=== PATIENT | female | born 1950 | race Caucasian/White ===

== ENCOUNTER 2020-09-20 15:58 | Emergency (ER) | payer OTHER, MEDICAID ==
[~2020-09-20] VITALS: Ht 170.2 cm; Wt 99.8 kg
[2020-09-20] MEDS ORDERED: PREDNISONE50 MG PO (17:05)
[2020-09-20 17:25] VITALS: BP 131/91
--- NOTE | 2020-09-21 10:51 | EKG ---
[place] [address] ELECTROCARDIOGRAM REPORT Name: HOWARD LEAVITT Room: [facility]#: [id number] Admission: 09/20/20 Attend Phys: Discharge: 09/20/20 Date of : 48 Date of Service: 09/20/20 1647 Report #: [id number] THIS REPORT FOR: //name// [facility] ED Test Date: 2020-09-20 Test Time: 16:47:11 Pat Name: HOWARD LEAVITT Department: Room: [facility]: Pot[employer] Stri[employer] 1950 Requested By: Michael Montenegro Order Number: [id number] MD: Jose C Dillon Measurements Intervals [place] Rate: 71 P: 77 MN: 151 QRS: -22 QRSD: 118 T: 22 QT: 423 QTc: 460 Interpretive Statements Sinus rhythm Nonspecific intraventricular conduction delay Low voltage, precordial leads No previous ECG available for comparison Electronically Signed On 09-21-2020 10:51:27 CDT by Jose C Dillon [email or web address] <ELECTRONICALLY SIGNED> By: Jose C Dillon MD, [facility] 09/21/20 1051 1647 1647 Jose C Dillon MD, [facility] /EPI
== END 2020-09-20 17:28 | disposition left against medical advice (07) ==
LOC: M.ERS 15:58
DX: J44.9 Chronic obstructive pulmonary disease, unspecified (principal)